=== PATIENT | female | born 1990 | race Caucasian/White ===

== ENCOUNTER 2018-02-05 04:05 | Emergency (ER) | payer OTHER, SELFPAY ==
[2018-02-05 04:23] VITALS: BP 122/80; PULSE 83; RESP 16; TEMP 36.3; O2SAT 100; BMI 21.4
--- NOTE | 2018-02-05 04:36 | DI.US.S_ITS ---
PROCEDURE: US OB <= 14 WEEKS FETUS INDICATIONS: 1st trimester vaginal bleeding OUTSIDE/PRIOR DATING DATA: Last menstrual period (LMP): 12/12/17. LMP-based estimated date of delivery (MARIELENA): 09/18/18. First dating scan (date and location): 02/05/18. Estimated date of delivery (MARIELENA) from first dating scan: 10/02/18. TECHNIQUE: Real-time scanning was performed of the fetus and maternal pelvic organs, with image documentation. Endovaginal scanning was also performed to better visualize the fetus and maternal ovaries. COMPARISON: None. FINDINGS: Embryo: There is an intrauterine with a gestational sac, yolk sac, and pole visualized. The crown-rump length measures approximately 0.3 cm corresponding to a gestational age of 5 weeks 6 days. There is heart motion noted with a rate of 113 beats per minute. A left perigestational subchorionic hematoma is demonstrated measuring 3.2 x 1.8 x 1.7 cm. Measurement variability in dating: +/- 4 weeks by LMP, +/- 7 days by mean sac diameter (use before 6 weeks gestation if crown-rump length not able to be measured), +/- 5 days by crown-rump length (up to 8 weeks 6 days gestation), +/- 7 days by crown-rump length (up to 13 weeks 6 days gestation). Maternal organs: Ovaries appear grossly within normal size limits on limited evaluation. Limited images through the kidneys demonstrate no hydronephrosis. IMPRESSION: 1. Single living intrauterine with calculated gestational age of 5 weeks 6 days corresponding to an estimated delivery date of 10/02/18. 2. Left perigestational subchorionic hemorrhage demonstrated. Dictated by: Albert Michelle M.D. on 02/05/2018 at 10:18 Approved by: Albert Michelle M.D. on 02/05/2018 at 10:22
[2018-02-05 05:05] LABS: Add Manual Diff / Slide Review NO; Basophils Percent Auto 0.5 % (0-2); Eosinophils Percent Auto 0.5 % (2-4); Hematocrit 36.3 % (36-46); Hemoglobin 12.6 g/dL (12.0-16.0); INR 1.1 (0.9-1.3); Lymphocytes Percent Auto 22.9 % (25-40); Mean Corpuscular HGB Conc 34.9 % (30-36); Mean Corpuscular Hemoglobin 29.9 PG (26-34); Mean Corpuscular Volume 85.7 fL (80-100); Monocytes Percent Auto 6.8 % (3-14); Neutrophils Absolute Auto 4700 /uL (3000-5900); Neutrophils Percent Auto 69.3 % (50-75); Platelet Count 192 X10^3/uL (150-400); Red Blood Cell Count 4.23 X10^6/uL (4.0-5.2); Red Cell Distribution Width 12.3 % (11.6-14.8); White Blood Cell Count 6.8 X10^3/uL (4.5-11.0)
[2018-02-05 05:10] LABS: Calcium 8.5 mg/dL (8.4-10.2); Estimated Glomerular Filt Rate > 60.0 mL/min (>60); Glucose 93 mg/dL (70-100); HEMOLYSIS < 15 (0-50); Potassium 4.1 mmol/L (3.4-5.1); Sodium 136 mmol/L (137-145)
[2018-02-05 05:11] LABS: Bacteria Urine Occasional (0-1); Culture Indicated Urine Cult Not Indicated; RBC Urine 1-5/HPF (0-5/HPF); Squamous Epithelial Cell Urine 0-1 /HPF; WBC Urine 0-1/HPF (0-5/HPF)
[2018-02-05 06:01] VITALS: BP 105/73; PULSE 84; RESP 16; O2SAT 100
--- NOTE | 2018-02-05 06:17 | ED.FEMALEGU ---
HPI - Female Genitourinary General Chief complaint: Vaginal Bleeding Stated complaint: 7 WEEKS AND BLEEDING Time Seen by Provider: 02/05/18 04:36 History of Present Illness HPI Narrative: HPI 27 y/o female presents at an estimated 7 weeks gestation but LMP for evaluation of several hours of scant bright red vaginal bleeding. Patient denies a history of multiparous gestations or IVF. * Volume: one pad * Pituitary: Denies headaches, changes in vision, or nipple discharge. Bird Tender: None. M/S/F/SocHx notable for: please see HPI; remainder reviewed with patient and in chart. ROS: Negative constitutional, eye, cardiovascular, pulmonary, GI, , MSK, skin, neurologic, psychiatric, endocrine unless noted in the HPI. Exam Gen: pleasant, non-toxic appearing, resting comfortably. HEENT: NC, AT, PEERL, EOMI. Resp: Clear to auscultation bilaterally, normal work of breathing, no accessory muscle usage. Card: Regular rate and rhythm with no murmurs, rubs, or gallops, extremities warm and well perfused. GI: Non-tender to palpation, no rebound tenderness or guarding, non-distended : no suprapubic tenderness palpation. MSK: No visible deformities, strength and tone without visually appreciable deficit. Skin: Normal color with no visible lesions. Neuro: AO x 3, no facial asymmetry, vision and hearing WNL. Psych: Mood and affect appropriate. Labs / Imaging (pertinent): WBC 6.8, hemoglobin 12.6, PT/INR 1.1, sodium 136, potassium 4.1, hCG 42,830. UA 1-5 RBCs, occasional bacteria, 0-1 WBCs. A+ Pelvic Ultrasound: single live intrauterine at approximate 5 weeks 6 days. Subchorionic hemorrhage adjacent to the gestational sac that measures 3.2 x 1.8 x 1.7 cm. MDM Previous chart, nursing note, and vitals reviewed. A: 27 y/o female presents at an estimated 7 weeks gestation but LMP for evaluation of several hours of scant bright red vaginal bleeding. DDx: Ectopic , threatened miscarriage, inevitable miscarriage, complete miscarriage, incomplete miscarriage, missed , vaginal/cervical lesion (including wart, trauma, tumor, ectropion, polyp). Evaluation: Exam without abdominal pain. Pelvic exam declined. Hb 12.6, Rh+, Rhogram not indicated (Rh+), BhCG 42,830. Ultrasound with a live intrauterine and concern for subchorionic hemorrhage. ED Course: Hemodynamically stable on arrival, patient remained stable throughout evaluation. Disposition: discharge with PRODUCT ARCHITECT follow-up in 24-48 hours. Impression: vaginal bleeding, threatened (please reference below for remainder of encounter information) Related Data Home Medications Medication Instructions Recorded Confirmed PNV cmb#[id number] fumarate-FA 02/05/18 [] Allergies Allergy/AdvReac Type Severity Reaction Status Date / Time No Known Drug Allergies Allergy Verified 02/05/18 04:26 [facility] Social History Smoking Status: Never smoker Exam Initial Vital Signs Initial Vital Signs: Vital Signs Temperature 97.3 F L 02/05/18 04:23 Pulse Rate 83 02/05/18 04:23 Respiratory Rate 16 02/05/18 04:23 Blood Pressure 122/80 H 02/05/18 04:23 Pulse Oximetry 100 02/05/18 04:23 Course Orders Ordered: ED Orders 02/05/18 04:36 US OB <= 14 weeks fetus Stat 02/05/18 04:49 Urine Microscopic Stat 02/05/18 04:54 ABO RH Type Stat Basic Metabolic Panel Stat Complete Blood Count AUTO DIFF Stat HCG Quantitative Stat Prothrombin Time INR Stat Vital Signs - 8 hr 02/05/18 04:23 02/05/18 06:01 Temperature 97.3 F L Pulse Rate 83 84 Respiratory Rate 16 16 Blood Pressure 122/80 H Blood Pressure [Right Arm] 105/73 Pulse Oximetry 100 100 MDM - Female Genitourinary Lab Data Result diagrams: 02/05/18 04:54 02/05/18 04:54 Lab Results 02/05/18 02/05/18 02/05/18 Range/Units 04:49 04:54 04:54 WBC 6.8 (4.5-11.0) X10^3/uL RBC 4.23 (4.0-5.2) X10^6/uL Hgb 12.6 (12.0-16.0) g/dL Hct 36.3 (36-46) % MCV 85.7 (80-100) fL MCH 29.9 (26-34) PG MCHC 34.9 (30-36) % RDW 12.3 (11.6-14.8) % Plt Count 192 (150-400) X10^3/uL Neut % (Auto) 69.3 (50-75) % Lymph % (Auto) 22.9 L (25-40) % [place] % (Auto) 6.8 (3-14) % Eos % (Auto) 0.5 L (2-4) % Baso % (Auto) 0.5 (0-2) % Neut # (Auto) 4700 (3529-9208) /uL PT 12.0 (10.1-12.7) SECONDS INR 1.1 (0.9-1.3) Sodium (137-145) mmol/L Potassium (3.4-5.1) mmol/L Chloride (98-107) mmol/L Carbon Dioxide (22-32) mmol/L BUN (7-17) mg/dL Creatinine (0.52-1.04) mg/dL Estimated GFR (>60) mL/min BUN/Creatinine Ratio (6-22) Glucose (70-100) mg/dL Calcium (8.4-10.2) mg/dL HCG, Quant mIU/mL Urine RBC 1-5/hpf (0-5/HPF) Urine WBC 0-1/hpf (0-5/HPF) Ur Squamous Epith Cells 0-1 /hpf Urine Bacteria Occasional (0-1) (None) Ur Culture Indicated? Cult not indicated Micro UA Comment Not Reportable Blood Type 18 02/05/18 Range/Units 04:54 04:54 WBC (4.5-11.0) X10^3/uL RBC (4.0-5.2) X10^6/uL Hgb (12.0-16.0) g/dL Hct (36-46) % MCV (80-100) fL MCH (26-34) PG MCHC (30-36) % RDW (11.6-14.8) % Plt Count (150-400) X10^3/uL Neut % (Auto) (50-75) % Lymph % (Auto) (25-40) % [place] % (Auto) (3-14) % Eos % (Auto) (2-4) % Baso % (Auto) (0-2) % Neut # (Auto) (5457-0279) /uL PT (10.1-12.7) SECONDS INR (0.9-1.3) Sodium 136 L (137-145) mmol/L Potassium 4.1 (3.4-5.1) mmol/L Chloride 100.0 (98-107) mmol/L Carbon Dioxide 26.0 (22-32) mmol/L BUN 9.0 (7-17) mg/dL Creatinine 0.50 L (0.52-1.04) mg/dL Estimated GFR > 60.0 (>60) mL/min BUN/Creatinine Ratio 18.0 (6-22) Glucose 93 (70-100) mg/dL Calcium 8.5 (8.4-10.2) mg/dL HCG, Quant 26541 mIU/mL Urine RBC (0-5/HPF) Urine WBC (0-5/HPF) Ur Squamous Epith Cells Urine Bacteria (None) Ur Culture Indicated? Micro UA Comment Blood Type A Positive Discharge Plan Departure Prescriptions: No Action PNV cmb#95-ferrous fumarate-FA [] 28 mg iron- 800 mcg Tablet RF: 0
[2018-02-07 16:47] LABS: HCG Quantitative /Beta subunit 42830 mIU/mL
== END 2018-02-05 06:38 | disposition home or self-care (01) ==
PROVIDERS: Emergency Provider Emergency Medicine
DX: O46.90 Antepartum hemorrhage, unspecified, unspecified trimester (principal)
CPT/HCPCS: 36415; 76801; 76817; 80048; 81015; 84702; 85025; 85610; 86900; 86901; 99282; 99284

== ENCOUNTER 2018-03-08 10:58 | Day surgery (SDC) | payer OTHER, SELFPAY ==
[2018-03-08] VITALS (7 sets, daily range): BP systolic 88–112; BP diastolic 51–79; PULSE 71–98; RESP 12–20; TEMP 36.1–36.6; O2SAT 96–100; BMI 20.4
--- NOTE | 2018-03-08 | PATH_ITS ---
[facility] Accession Number: [id number] . 01 Material submitted: . UTERINE CONTENTS, CERVICAL POLYP . 02 Diagnosis: Uterine Contents, Cervical Polyp, Procedure Not Specified: Products of conception (chorionic villi) identified. Fragments of endometrial polyp with decidualized stromal change; negative for glandular hyperplasia, cytologic atypia and malignancy. [facility] [place]10[place] . 02 Electronically signed: . Araceli Maldonado MD, Pathologist NPI- [id number] . 01 Gross description: . Received in formalin, labeled 1-Uterine contents cervical polyp, are multiple fragments of funes-perla hemorrhagic spongy tissue (10.5 x 7.5 x 2.5 cm in aggregate). Entirely submitted in cassettes A1-A21. ([id number]) . /[facility] . 02 Pathologist provided ICD-10: O02.1, N84.0 . 02 CPT . 475685 Performed at: 01 [facility] [address], [place], [place] [id number] MD Albert Hall MD Phone: [phone] Performed at: 02 [facility] [address] [place], [place] [id number] MD Palomo Holman MD Phone: [phone]
[2018-03-08] MEDS: LACTATED RINGERS 1,000 ML 42 ML IV (11:15)
--- NOTE | 2018-03-08 12:51 | PM.PREOP ---
Pre-operative Note Interval Note Pre-op Check: History & Physical Reviewed by Physician
--- NOTE | 2018-03-08 13:20 | PM.GYNOP.1 ---
Operative Date/Time/Diagnoses - Date of procedure: 03/08/18 Time of procedure: 13:00 Pre-op diagnosis: Missed Post-op diagnosis: other (Missed , Cervical polyp) Procedure: Procedures Operation Date: 03/08/18 12:15 <No data on this case meets the specified criteria> Suction Dilation and Curettage Indications: The patient is a 27-year-old 2 para 1 female at 9+ weeks gestation diagnosed with a missed at the time of her new OB visit. Endovaginal ultrasound demonstrated a pole was measuring consistent with 9 weeks; however, no cardiac activity was noted. After reviewing management options, the patient desired to proceed with surgical management. Risks, benefits, limitations, alternatives, and expectations were reviewed. Consent was reviewed and signed prior to the 2 to the date of surgery. Surgeon: Mandie Ingram Anesthesia Type: General and Local Operative Notes Findings: Exam under anesthesia: Uterus was anteverted, measuring approximately 10 weeks size. No adnexal masses were palpable. A small, approximately 3 mm, defect was noted in the posterior hymenal ring. Operative findings: A moderate amount of products of conception was obtained with suction D&C. Prior to dilation, a 6 mm endocervical polyp was seen. This was not identified at the completion of the case, and it was thought to have been removed with the curettage specimen. Closure Type: not applicable Specimen(s): uterine contents Estimated blood loss (mL): 20 Blood products transfused: none Procedure in detail: The patient was taken to the operating room where general anesthesia with LMA was administered without difficulty. She was then placed in the high dorsal lithotomy position with her lower extremities in Yellofin stirrups. Exam under anesthesia was then performed with the findings as noted above. Perineum and vagina were then prepped and draped in a sterile fashion, and in-and-out catheterization was performed. Procedure Time-Out was performed. A sterile bivalve speculum was then placed. The anterior lip of the cervix was then grasped with a single-toothed tenaculum. Local anesthetic using was then injected for a paracervical block. The cervix was then serially dilated until a 10 mm curved rigid suction curette could be gently advanced to the uterine fundus. Suction curettage was then performed until it was felt that the majority of the tissue was removed. Gentle sharp curettage was then performed and good crie was noted on all 4 alvarado of the uterus. The suction curette was then reintroduced to ensure no residual products of conception. The tenaculum was then removed, and the tenaculum sites hemostatic after application of gentle pressure using a sponge stick. At this point, the procedure was deemed complete. Sponge, lap, and needle count were correct x3. There were no complications. The patient was then taken to the recovery room in stable condition. Complications: none Post-operative Condition: stable Disposition: same day surgery Plan for aftercare: See handout
--- NOTE | 2018-03-08 13:30 | SUR.OPER ---
Lithotomy on padded OR bed, head on pillow, arms secured on padded arm boards at <90 degrees abduction. Legs secured in padded yellow fins stirrups.
--- NOTE | 2018-03-08 13:31 | SUR.OPER ---
to or from opd via espinozarly transfered to or table per self
[2018-03-08] MEDS: CEFAZOLIN 2 GM/100 ML FROZ.PIGGY IV (13:39)
[2018-03-08] MEDS: BUPIVACAINE 0.25% W/ EPI 50 ML VIAL 9 ML INJ (13:42)
== END 2018-03-08 14:30 | disposition home or self-care (01) ==
LOC: OR 10:59
PROVIDERS: PCP Nurse Practitioner Family; Visit Provider Obstetrics & Gynecology
PROC: (CPT 58120; principal; 2018-03-08 12:15)
DX: O02.1 Missed abortion (principal); Z3A.09 9 weeks gestation of pregnancy; N84.1 Polyp of cervix uteri
CPT/HCPCS: 59820; J0690; J1100; J1885; J2250; J2405; J2704; J3010